=== PATIENT | male | born 1940 | race Caucasian/White ===

== ENCOUNTER 2021-02-03 21:00 | Emergency (ER) | payer MEDICARE, BC ==
[~2021-02-03] VITALS: Ht 180.3 cm; Wt 74.8 kg
[2021-02-03 22:53] LABS: CLARITY,URINE SL CLOUDY (CLEAR); COLOR,URINE AMBER (YELLOW); KETONES,URINE NEGATIVE (NEGATIVE); LEUKOCYTE ESTERASE ,URINE TRACE (NEGATIVE); NITRITE,URINE POSITIVE (NEGATIVE); PROTEIN,URINE DIPSTICK 2+ (NEGATIVE); URINE UROBILINOGEN 0.2 mg/dL (0.2 - 1)
[2021-02-03 22:58] LABS: BACTERIA,URINE FEW /HPF; EPITHELIAL CELLS,URINE RARE /LPF; RBC,URINE 21-50 /HPF (0-5)
== END 2021-02-03 23:08 | disposition home or self-care (01) ==
LOC: ER 22:27
DX: R33.9 Retention of urine, unspecified (principal); R10.30 Lower abdominal pain, unspecified; K21.9 Gastro-esophageal reflux disease without esophagitis
CPT/HCPCS: 51700; 81001; 87086; 99283

== ENCOUNTER 2021-02-08 21:13 | Emergency (ER) | payer MEDICARE, BC ==
[~2021-02-08] VITALS: Ht 180.3 cm; Wt 74.8 kg
[2021-02-08 21:36] LABS: CLARITY,URINE HAZY (CLEAR); COLOR,URINE YELLOW (YELLOW); KETONES,URINE NEGATIVE (NEGATIVE); LEUKOCYTE ESTERASE ,URINE SMALL (NEGATIVE); NITRITE,URINE NEGATIVE (NEGATIVE); PROTEIN,URINE DIPSTICK NEGATIVE (NEGATIVE); URINE UROBILINOGEN 0.2 mg/dL (0.2 - 1)
[2021-02-08 21:48] LABS: BACTERIA,URINE FEW /HPF
[2021-02-08 21:50] LABS: ANION GAP 13.4 mmol/L (8-16); CALCIUM 9.5 mg/dL (8.4-10.2); CREATININE, SERUM 1.25 mg/dL (0.72-1.25); POTASSIUM 4.4 mmol/L (3.5-5.1)
[2021-02-08] MEDS ORDERED: CEPHALEXIN 500 MG CAP PO STA (21:52)
[2021-02-08] MEDS ORDERED: CEPHALEXIN500 MG PO (21:58)
== END 2021-02-08 22:34 | disposition home or self-care (01) ==
LOC: ER 21:25
DX: R33.9 Retention of urine, unspecified (principal); N39.0 Urinary tract infection, site not specified; K21.9 Gastro-esophageal reflux disease without esophagitis
CPT/HCPCS: 36415; 51700; 80048; 81001; 87086; 99284